=== PATIENT | female | born 1980 | race American Indian/Alaskan Native ===

== ENCOUNTER 2018-05-24 12:52 | Emergency (ER) | payer MEDICAID ==
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
--- NOTE | 2018-05-24 14:30 | XRay Report ---
FACIAL BONES, 4 views: HISTORY: Facial injury, pain. The left medial orbital wall is not confidently identified on 2 views. The ethmoid air cells appear well aerated. Correlate with the patient for left orbital pain and consider CT facial bones as needed. The remaining facial bones are intact. The sinuses are well-aerated. The nasal bones are intact. IMPRESSION: Questionable medial left orbital wall injury. Please see above.
[2018-05-24 15:19] VITALS: BP 132/72
== END 2018-05-24 15:17 | disposition home or self-care (01) ==
LOC: ED 12:52
DX: R51 Headache (principal); J32.0 Chronic maxillary sinusitis; F17.200 Nicotine dependence, unspecified, uncomplicated
CPT/HCPCS: 70150; 99283